=== PATIENT | male | born 1990 | race Caucasian/White ===

== ENCOUNTER 2017-09-24 09:13 | Emergency (ER) | payer OTHER ==
[~2017-09-24] VITALS: Ht 193 cm; Wt 81.0 kg
[2017-09-24 09:21] VITALS: BP 150/85
== END 2017-09-24 10:26 | disposition home or self-care (01) ==
LOC: ER 09:14
DX: M25.561 Pain in right knee (principal); X50.1XXA Overexertion from prolonged static or awkward postures, initial encounter; Y93.89 Activity, other specified; Y92.69 Other specified industrial and construction area as the place of occurrence of the external cause; Y99.9 Unspecified external cause status
CPT/HCPCS: 99284; A6449